=== PATIENT | female | born 1980 | race African-American/Black ===

== ENCOUNTER 2024-06-12 09:35 | Emergency (ER) | payer BC, OTHER ==
[~2024-06-12] VITALS: Ht 162.6 cm; Wt 117.9 kg
[2024-06-12 09:52] VITALS: BP 151/96; PULSE 82; RESP 16; TEMP 98; O2SAT 100
[2024-06-12] MEDS ORDERED: P20 PO (10:13)
[2024-06-12] MEDS ORDERED: NAP5EC MT (10:13)
== END 2024-06-12 10:20 | disposition home or self-care (01) ==
LOC: ER 09:52
DX: M70.71 Other bursitis of hip, right hip (principal); Z98.890 Other specified postprocedural states
CPT/HCPCS: 99283

== ENCOUNTER 2024-06-16 09:18 | Emergency (ER) | payer OTHER ==
[~2024-06-16] VITALS: Ht 165.1 cm; Wt 95.0 kg
[~2024-06-16 09:18] MED LIST: NAP5EC MT; P20 PO
[2024-06-16 09:40] VITALS: O2SAT 99
[2024-06-16 09:55] LABS: BASOPHILS % 0.3 % (0.0-2.0); EOSINOPHILS % 0.3 % (0.0-5.0); HEMATOCRIT. 45.8 % (36.0-48.0); HEMOGLOBIN. 15.3 g/dL (12.0-16.0); MEAN CORPUSCULAR HEMOGLOBIN 29.9 pg (28.0-32.0); MEAN CORPUSCULAR HGB CONC 33.5 g/dL (31.0-37.0); MEAN CORPUSCULAR VOLUME 89.2 fL (81.0-99.0); MEAN PLATELET VOLUME 8.7 fl (7.4-10.4); MONOCYTES % 9.8 % (2.0-8.0); NEUTROPHILS % 64.6 % (40.0-76.0); PLATELET 235 x1000/uL (130-400); RED BLOOD CELL COUNT 5.13 mill/uL (4.2-5.4); RED CELL DISTRIBUTION WIDTH 12.7 % (11.6-14.6); WHITE BLOOD COUNT 9.4 x1000/uL (4.5-11.0)
[2024-06-16 10:03] LABS: CHLORIDE 93 mEq/L (98-107); POTASSIUM 3.1 mEq/L (3.5-5.1); SODIUM 129 mEq/L (136-145)
[2024-06-16 10:04] LABS: CALCIUM 9.5 mg/dL (8.7-10.4); CARBON DIOXIDE 27 mEq/L (21-32)
[2024-06-16 10:09] LABS: CREATININE 0.9 mg/dL (0.6-1.0)
[2024-06-16 10:10] LABS: GLUCOSE 277 mg/dL (70-105); TROPONIN I HIGH SENSITIVITY 6 ng/L (3.0-34); UREA NITROGEN BLOOD 12 mg/dL (9-23)
[2024-06-16 10:11] LABS: ALANINE AMINOTRANSFERASE 19 IU/L (10-49); ALBUMIN 4.6 g/dL (3.2-4.8); ASPARTATE AMINOTRANSFERASE 16 IU/L (<34)
[2024-06-16 10:12] LABS: BILIRUBIN DIRECT 0.2 mg/dL (<=3.0); BILIRUBIN TOTAL 0.8 mg/dL (0.1-1.0); PROTEIN TOTAL 7.5 g/dL (6.0-8.3)
[2024-06-16] MEDS: ONDANSETRON 4MG ODT PO ONE (11:17)
[2024-06-16] MEDS: MAGNESIUM/ALUMINUM HYDROXIDE/SIMETHICONE 30ML UDC PO ONE (11:17)
[2024-06-16] MEDS: PANTOPRAZOLE 40MG DR TABLET PO ONE (11:21)
[2024-06-16] MEDS ORDERED: ONDA-239 PO (11:24)
[2024-06-16] MEDS: SODIUM CHLORIDE 0.9% 1,000 ML IV ONE (11:44)
[2024-06-16 11:45] LABS: CLARITY URINE CLEAR (CLEAR); COLOR URINE YELLOW (YELLOW); GLUCOSE URINE 3+ (NEGATIVE); KETONES URINE 3+ (NEGATIVE); LEUKOCYTE ESTERASE URINE NEGATIVE (NEGATIVE); NITRITE URINE NEGATIVE (NEGATIVE); OCCULT BLOOD URINE NEGATIVE (NEGATIVE); PROTEIN URINE 1+ (NEGATIVE); SPECIFIC GRAVITY URINE 1.026 (1.005-1.030)
[2024-06-16] MEDS: POTASSIUM CHLORIDE 20MEQ/PACKET PO ONE (11:48)
[2024-06-16 12:04] LABS: BACTERIA URINE 1+; RBC URINE 0-2 /hpf (0-2); SQUAMOUS EPITHELIAL CELL URINE 2+ /lpf (RARE/1+); YEAST URINE FEW
[2024-06-16 14:10] VITALS: BP 157/90; PULSE 77; RESP 18; TEMP 36.78072; O2SAT 99
== END 2024-06-16 14:14 | disposition home or self-care (01) ==
LOC: ER 09:18
DX: E87.1 Hypo-osmolality and hyponatremia (principal); K29.70 Gastritis, unspecified, without bleeding; Z98.890 Other specified postprocedural states
CPT/HCPCS: 99284; 96360; 80076; 80048; 81003; 81025; 83690; 85025; 84484; 36415; 93005; Q0162; J7030

== ENCOUNTER 2024-11-07 08:46 | Emergency (ER) | payer OTHER ==
[~2024-11-07] VITALS: Ht 162.6 cm; Wt 113.0 kg
[~2024-11-07 08:46] MED LIST changes: -NAP5EC MT; +NAPR-1495 MT; +ONDA-239 PO
[2024-11-07 09:02] VITALS: O2SAT 99
[2024-11-07] MEDS ORDERED: IBUP-1523 MT (10:40)
[2024-11-07] MEDS ORDERED: ALBU90AE INH (10:40)
[2024-11-07] MEDS ORDERED: AZIT500T8 MT (10:40)
[2024-11-07] MEDS ORDERED: FLUT9.9S BOTHNSTRLS (10:40)
[2024-11-07 11:03] VITALS: BP 143/91; PULSE 73; RESP 16; TEMP 37.2; O2SAT 99
== END 2024-11-07 11:04 | disposition home or self-care (01) ==
LOC: ER 08:46
DX: J45.909 Unspecified asthma, uncomplicated (principal); J31.0 Chronic rhinitis; Z79.1 Long term (current) use of non-steroidal anti-inflammatories (NSAID); Z79.52 Long term (current) use of systemic steroids
CPT/HCPCS: 99283